=== PATIENT | male | born 1975 | race African-American/Black ===

== ENCOUNTER 2016-07-26 13:19 | Emergency (ER) ==
[2016-07-26 13:27] VITALS: BP 151/87
--- NOTE | 2016-07-26 15:01 | PROVIDER DOCUMENTATION ---
[facility] General - General Chief Complaint: Eye Complaint Stated Complaint: EYE COMPLAINT Time Seen by Provider: 07/26/16 14:58 Source: patient Allergies/Adverse Reactions: Patient Allergies Allergy/AdvReac Type Severity Reaction Status Date / Time No Known Allergies Allergy Verified 12/15/14 14:44 Home Medications: Home Medication List Medication Instructions Recorded Confirmed Last Taken Type Ciprofloxacin 0.3% Ophth Soln 2 drop LEFT EYE BID #2 bottle 12/15/14 Unknown Rx [Ciloxan Ophth Soln] Tramadol [Ultram] 50 mg PO Q6H PRN PRN #20 tablet 12/15/14 Unknown Rx Hydrocodone/APAP 7.5 mg/325 mg 1 each PO Q8H PRN PRN #10 tablet 07/26/16 Unknown Rx [Chapin-7.5] Tobramycin 0.3% Oph Soln [Tobrex 1 drop BOTH EYES Q4HR #1 bottle 07/26/16 Unknown Rx Oph Soln] - History of Present Illness-EENT General Nature of Presenting Problem: Pt is 41 y/o M presents to the ED with L eye pain. Pt states pain started this morning. Pt states he has not wore contacts in two weeks. Pt denies sick contact. EENT Location: reports: eye (L) Quality of Pain: reports: aching Severity: reports: mild Onset/Duration: reports: this morning Timing: reports: still present, intermittent Prearrival Treatment: Initiated no prearrival treatment Associated Symptoms: reports: denies symptoms Similar Symptoms Previously?: No Recently seen or treated by another doctor?: No - Eyes Eye Problem Symptoms: reports: eye pain (L), burning (L), sensitivity to light ( L), redness (L) Apparent Injury?: No Eye Problem Context: reports: none Eyes washed at the scene?: No - Ears Ear Problem Symptoms: reports: none - Throat/Dental Throat/Dental Problem Symptoms: reports: none Review of Systems - Adult - REVIEW OF SYSTEMS - ADULT Constitutional: denies: chills, fever Eyes: reports: discharge (L), eye pain (L), redness (L). denies: blurred vision , double vision Ears, Nose, Mouth & Throat: denies: ear pain, nose pain, throat pain Cardiovascular: denies: chest pain, heart murmur, irregular heart rate Respiratory: denies: cough, shortness of breath, wheezing Gastrointestinal: denies: abdominal pain, diarrhea, nausea, vomiting Genitourinary: denies: dysuria, hematuria Musculoskeletal: denies: bone pain, joint pain, neck pain Integumentary: denies: hives, itching Neurological: denies: dizziness/vertigo, headache/migraines Psychiatric: reports: no symptoms reported Endocrine: reports: no symptoms reported Hematologic/Lymphatic: reports: no symptoms reported Allergic/Immunologic: reports: no symptoms reported All Other Systems: Reviewed and Negative Past History - Adult - PAST MEDICAL HISTORY-ADULT Review of Records: reports: Nursing Assessment Review, Medications Reviewed, Social history reviewed & non-contributory. Major Childhood Illnesses: reports: denies history Cardiovascular: reports: HTN Respiratory: reports: denies history Gastrointestinal: reports: GERD Obstetrical/Gynecological: reports: denies history Genitourinary: reports: denies history Musculoskeletal: reports: neck/back injury Neurological: reports: denies history Psychiatric: reports: denies history Endocrine/Immune: reports: denies history Other Conditions: reports: denies history - PRIOR SURGERIES/PROCEDURES Surgical/Procedure History: reports: none - IMMUNIZATION STATUS Childhood Immunizations: See Nurse Assessment Flu Vaccine: See Nurse Assessment - FAMILY HISTORY Family History: reviewed, not pertinent - SOCIAL HISTORY Smoking: cigarettes, less than 1 pack/day Provider spent 3-5 mins advising pt. on dangers of tobacco.: Discussed manners to quit use, and f/u contacts for add'l counseling. Substance Use: alcohol Alcohol Use Frequency: occasionally Number of drinks per typical drinking period:: 2 drinks Living Situation: family Physical Exam- EENT - Physical Exam EENT Initial Vital Signs Reviewed: Yes General Appearance: appears well, alert, no apparent distress Eye Exam: left eye: conjunctival inflammation, other (redness ), bilateral eye: PERRL, EOMI Ear Exam: bilateral ear: auricle normal, canal normal, TM normal Nasal Exam: normal inspection Throat Exam: normal mouth inspection, pharynx normal Neck: non-tender, full range of motion, supple, normal inspection Respiratory: chest non-tender, lungs clear, normal breath sounds, no pleuratic chest pain, no respiratory distress, no accessory muscle use Cardiovascular: normal peripheral pulses, regular rate, rhythm, no edema, no gallop, no JVD, no murmur Abdominal Exam: normal bowel sounds, non tender, soft, no organomegaly, no pulsatile mass Lymphatic: no adenopathy Back Exam: normal inspection, no CVA tenderness, no vertebral tenderness Extremity: normal range of motion, non-tender, normal gait, normal inspection, no pedal edema, no calf tenderness, normal capillary refill, pelvis stable Integumentary: normal color, normal turgor, warm/dry Neurologic: photographic processor II-XII nml as tested, grossly normal, no motor/sensory deficits Psych/Mental Status: normal mood/affect, normal thought content, normal thought process, oriented x 3 Progress - PLAN OF CARE/RESULTS Progress/Plan/Lab Results: Orders Category Date Time Status Visual Acuity DIRECTED Care 07/26/16 15:06 Active Vital Signs - 24 hr 07/26/16 13:23 Temperature 97.8 F Pulse Rate 75 Respiratory 18 Rate Blood Pressure 151/87 O2 Sat by Pulse 100 Oximetry Procedures - EYE PROCEDURES Alcaine Drops Administered: Yes Eye(s) Irrigated?: No Óscar Lens Used for Irrigation?: No Eye Exam: Wood's Lamp Eye Foreign Body Removal: Cotton Tip Swab Remaining Material after Foreign Body Removal: Debris (3 o'clock placement) Antibiotic Oinment/Drops Admininstered: Given as Rx Departure - Departure Time of Disposition Order: 15:39 DIAGNOSIS: Corneal foreign body Qualifiers: Encounter type: initial encounter Laterality: left Qualified Code(s): T15.02XA - Foreign body in cornea, left eye, initial encounter DIAGNOSIS: (Ruled Out): Foreign body Disposition: HOME 01 Certified Medical Emergency: Emergent Condition: Stable Additional Instructions: ED Follow Up Instructions: You have been treated by a care provider in the Emergency Department. These instructions are being provided to you so you can have an understanding of how to care for yourself upon discharge. Upon discharge from the Emergency Department, you are responsible for making arrangements for follow-up care by a physician of your choice. Take all prescribed medications as directed. Return to the Emergency Department immediately for any new or worsening symptoms. You may call the Physician Referral phone number at [phone] to obtain a list of Physicians who are taking new patients. Prescriptions: Hydrocodone/APAP 7.5 mg/325 mg [Chapin-7.5] 1 each PO Q8H PRN PRN #10 tablet PRN Reason: Pain Tobramycin 0.3% Oph Soln [Tobrex Oph Soln] 1 drop BOTH EYES Q4HR #1 bottle Referrals: None,PCP [Primary Care Provider] - Attestation - Scribe Verification/Attestation Scribe:: Geno Robins Acting as Scribe for:: Edd Robin Scribe documention review:: This chart was documented by a scribe and accurately reflects the service the provider performed and the decisions made by the provider.
[2016-07-26] MEDS ORDERED: FLUORI-I-STRIP ONE (15:22)
[2016-07-26] MEDS ORDERED: PONTOCAINE 0.5% OPH SOLUTION ONE (15:22)
[2016-07-26] MEDS ORDERED: EYE-STREAM SOLUTION ONE (15:26)
== END 2016-07-26 15:53 | disposition home or self-care (01) ==
LOC: P.ED 13:19
DX: T15.02XA Foreign body in cornea, left eye, initial encounter (principal); H57.12 Ocular pain, left eye; I10 Essential (primary) hypertension; F17.210 Nicotine dependence, cigarettes, uncomplicated; Z71.6 Tobacco abuse counseling
CPT/HCPCS: 99283